=== PATIENT | female | born 1985 | race Caucasian/White ===

== ENCOUNTER → 2016-11-09 | Outpatient (REF) | payer OTHER | LOC: M SFHCLERA 07:54 | PROVIDERS: ATTEND Family Medicine | DX: R73.02 Impaired glucose tolerance (oral) (principal) ==

== ENCOUNTER → 2016-11-28 | Outpatient (REF) | payer OTHER | LOC: M SFHCLERA 09:15 | PROVIDERS: ATTEND Family Medicine | DX: E11.9 Type 2 diabetes mellitus without complications (principal) ==

== ENCOUNTER → 2017-02-02 | Outpatient (REF) | payer OTHER ==
[2017-02-02 11:39] LABS: ALBUMIN 3.5 GM/DL (3.2-5.2); ALBUMIN/GLOBULIN RATIO 1.03 (1.00-1.93); ALKALINE PHOSPHATASE 92 U/L (45-117); ALT/SGPT 23 U/L (12-78); ANION GAP 6 MEQ/L (8-16); AST/SGOT 10 U/L (15-37); BILIRUBIN,TOTAL 0.9 MG/DL (0.2-1.0); BLOOD UREA NITROGEN 13 MG/DL (7-18); CARBON DIOXIDE LEVEL 29 MEQ/L (21-32); CHLORIDE LEVEL 102 MEQ/L (98-107); CREATININE FOR GFR 0.78 MG/DL (0.55-1.02); GLOMERULAR FILTRATION RATE > 60.0 (>60); GLUCOSE, FASTING 130 MG/DL (70-105); POTASSIUM SERUM 4.7 MEQ/L (3.5-5.1); SODIUM LEVEL 137 MEQ/L (136-145); TOTAL PROTEIN 6.9 GM/DL (6.4-8.2)
== END ==
LOC: M SFHCLERA 08:25
PROVIDERS: ATTEND Family Medicine
DX: E78.5 Hyperlipidemia, unspecified (principal); E11.9 Type 2 diabetes mellitus without complications

== ENCOUNTER → 2017-04-16 | Outpatient (CLI) | payer OTHER ==
--- NOTE | 2017-04-24 08:03 | SLEEPCENT ---
DATE OF PROCEDURE: 04/16/2017 ORDERED BY: MARIANN Gleason Nocturnal polysomnography was performed due to concern for the obstructive sleep apnea syndrome in this patient with excessive somnolence. 8 hours of data were reviewed. There were 430 minutes of sleep identified. Sleep latency was prolonged at 30 minutes. Rapid eye movement (REM) was prolonged at 339 minutes. Sleep architecture showed fragmentation and poor progression. Overall sleep efficiency was good at 91%, but there was a reduction in REM time. The patient's EKG showed a sinus rhythm with an average heart rate of 76 beats per minute. EEG showed normal waveforms for awake and sleep. There were 295 respiratory events identified of 10 seconds in duration or greater for an apnea hypopnea index of 41.1. The events were primarily obstructive, not exclusive to sleep stage, more frequent in the supine posture. Arousals from respiratory events occurred 8.2 times per hour and oxygen desaturations were seen well into the 70s. There was some limb activity noted on the EMG but arousal from limb events were few. IMPRESSION: Severe obstructive sleep apnea syndrome (G47.33). Apnea hypopnea index 41.1. RECOMMENDATION: The patient should be encouraged to return to the sleep disorder center for pressure therapy. In the interim, alcohol and sedative avoidance should be practiced and caution exercised during the operation of motor vehicles.
== END ==
LOC: M SLEEP 19:35
PROVIDERS: ATTEND Nurse Practitioner Adult Health
DX: G47.30 Sleep apnea, unspecified (principal)

== ENCOUNTER → 2017-04-29 | Outpatient (CLI) | payer OTHER ==
--- NOTE | 2017-05-02 15:27 | SLEEPCENT ---
DATE OF PROCEDURE: 04/29/2017 REFERRING PHYSICIAN: Dr. Roberts INTERPRETATION: Nocturnal polysomnography was performed for the titration of pressure therapy in this patient with obstructive sleep apnea syndrome with an apnea/hypopnea index of 41. For testing, the [employer] Mirage Quattro full-face mask of small size was used, 5 cm of water pressure were applied to the circuit and the lights were extinguished. 6 hours and 47 minutes of data were reviewed. There were 323 minutes of sleep identified. Sleep latency was normal at 9 minutes. REM latency was delayed at 194 minutes. Sleep architecture improved particularly late in the study. There was some evidence of REM rebound. Overall sleep efficiency was 85.7%. The patient's EKG showed a sinus rhythm with an average heart rate of 80 beats per minute. EEG showed normal fairly normal waveforms for awake and sleep. Respiratory events were fully palliated with CPAP at a pressure +13. The remaining measures of sleep physiology were normal. IMPRESSION: Obstructive sleep apnea syndrome (G47.33). RECOMMENDATION: Nightly use of pressure therapy at 13 cm of water.
== END ==
LOC: M SLEEP 19:37
PROVIDERS: ATTEND Nurse Practitioner Adult Health
DX: G47.33 Obstructive sleep apnea (adult) (pediatric) (principal)

== ENCOUNTER → 2017-09-30 | Outpatient (REF) | payer OTHER ==
[2017-09-30 12:14] LABS: BASO % 0.6 % (0.0-1.0); EOS # 0.1 10^3/uL (0.0-0.50); HEMATOCRIT 41.4 % (36.0-47.0); HEMOGLOBIN 13.2 g/dl (12.0-16.0); IMMATURE GRANULOCYTE % 0.2 % (0-0); LYMPH # 1.6 10^3/uL (1.5-4.5); LYMPH % 28.8 % (24.0-44.0); MEAN CORPUSCULAR HEMOGLOBIN 28.4 pg (27.0-33.0); MEAN CORPUSCULAR HGB CONC 31.9 g/dl (32.0-36.5); MONO # 0.5 10^3/uL (0.0-0.8); MONO % 8.3 % (0.0-5.0); NEUTROPHILS # 3.3 10^3/uL (1.8-7.7); NEUTROPHILS % 60.1 % (36.0-66.0); PLATELET COUNT, AUTOMATED 260 10^3/uL (150-450); RED BLOOD COUNT 4.65 10^6/uL (4.00-5.40); RED CELL DISTRIBUTION WIDTH 12.4 % (11.5-14.5); WHITE BLOOD COUNT 5.5 10^3/uL (4.0-10.0)
[2017-09-30 12:45] LABS: TOTAL 25(OH) VITAMIN D 37.9 NG/ML (30.0-100.0)
[2017-09-30 12:46] LABS: FOLATE > 24.0 NG/ML; VITAMIN B12 LEVEL 387 PG/ML
[2017-09-30 12:51] LABS: ALBUMIN 3.6 GM/DL (3.2-5.2); ALBUMIN/GLOBULIN RATIO 1.13 (1.00-1.93); ALKALINE PHOSPHATASE 77 U/L (45-117); ALT/SGPT 21 U/L (12-78); ANION GAP 6 MEQ/L (8-16); AST/SGOT 15 U/L (7-37); BILIRUBIN,TOTAL 0.7 MG/DL (0.2-1.0); BLOOD UREA NITROGEN 16 MG/DL (7-18); CALCIUM LEVEL 9.4 MG/DL (8.5-10.1); CARBON DIOXIDE LEVEL 31 MEQ/L (21-32); CHLORIDE LEVEL 106 MEQ/L (98-107); CHOLESTEROL LEVEL 157 MG/DL (<200); CHOLESTEROL RISK RATIO 3.925 (<5); CREATININE FOR GFR 0.61 MG/DL (0.55-1.30); FERRITIN 13 NG/ML (8-252); GLOMERULAR FILTRATION RATE > 60.0 (>60); GLUCOSE, FASTING 90 MG/DL (70-100); HDL CHOLESTEROL 40 MG/DL (>40); IRON (FE) 99 UG/DL (50-170); LDL CHOLESTEROL 103.8 MG/DL (<100); NON-HDL-C 117 MG/DL; PERCENT SATURATION 31.1 % (13.2-45.0); POTASSIUM SERUM 4.9 MEQ/L (3.5-5.1); SODIUM LEVEL 143 MEQ/L (136-145); TOTAL IRON BINDING CAPACITY 318 UG/DL (250-450); TOTAL PROTEIN 6.8 GM/DL (6.4-8.2); TRIGLYCERIDES LEVEL 66 MG/DL (<150)
[2017-09-30 13:00] LABS: ESTIMATED AVERAGE GLUCOSE 117 MG/DL (60-110); HEMOGLOBIN A1c 5.7 %
== END ==
LOC: M SFHCLERA 08:35
DX: E11.9 Type 2 diabetes mellitus without complications (principal); E78.5 Hyperlipidemia, unspecified; Z98.84 Bariatric surgery status
CPT/HCPCS: 82746

== ENCOUNTER → 2017-11-25 | Outpatient (REF) | payer OTHER ==
[2017-11-26 11:14] LABS: RUBELLA IgG QUALITATIVE IMMUNE (IMMUNE)
[2017-11-27 08:16] LABS: HERPES ZOSTER, VARICELLA IgG 647 index (Immune >165); MUMPS VIRUS IgG ANTIBODY 27.1 AU/mL (Immune >10.9)
[2017-11-30 00:07] LABS: BORDETELLA PERTUSSIS ABY IgG 1.44 index (0.00-0.94)
== END ==
LOC: M SFHCLERA 14:04
DX: Z91.89 Other specified personal risk factors, not elsewhere classified (principal); Z23 Encounter for immunization
CPT/HCPCS: 86762